=== PATIENT | female | born 1980 | race Caucasian/White ===

== ENCOUNTER 2016-12-28 22:08 | Emergency (ER) | payer SELFPAY ==
[~2016-12-28] VITALS: Ht 167.6 cm; Wt 80.7 kg
[~2016-12-28 22:08] MED LIST: ALBUTEROL INHALER; ALBUTEROL0.09 MG/A1; MOTRIN; PROVENTIL2.5 MG/3 M INH
[2016-12-28 22:31] VITALS: BP 138/101
--- NOTE | 2016-12-28 23:18 | NUR ---
AMBULATED TO ER BED 2
--- NOTE | 2016-12-28 23:30 | NUR ---
PATIENT PRESENTS TO ED WITH C.O. ABDOMINAL PAIN . DENIES N/V/D; SKIN IS PINK/WARM/DRY; AAOX4 WITH EVEN AND STEADY GAIT; LUNGS CLEAR BL; HR EVEN AND REGULAR; PT DENIES ANY FEVER, CP, SOB, OR COUGH AT THIS TIME; PATIENT STATES PAIN OF 7/10 AT THIS TIME; VSS; PATIENT POSITIONED FOR COMFORT; HOB ELEVATED; BEDRAILS UP X2; BED DOWN. ER MD MADE AWARE OF PT STATUS.
--- NOTE | 2016-12-28 23:35 | NUR ---
Patient being evaluated by physician at bedside.
[2016-12-28] MEDS ORDERED: ALUMINUM HYD/MAG/SIMETHICONE 30 ML, BELLADONNA/PHENOBARBITAL 10 ML, LIDOCAINE VISCOUS 2... PO ONE (23:50)
[2016-12-28] MEDS ORDERED: KETOROLAC 30 MG/ML VIAL IM ONE (23:50)
--- NOTE | 2016-12-29 01:21 | NUR ---
PT RESTING. VSS; PATIENT POSITIONED FOR COMFORT; HOB ELEVATED; BEDRAILS UP X2; BED DOWN. ER MD MADE AWARE OF PT STATUS.
[2016-12-29 01:53] VITALS: BP 122/82
--- NOTE | 2016-12-29 01:53 | NUR ---
Patient discharged with v/s stable. Written and verbal after care instructions given and explained. Patient alert, oriented and verbalized understanding of instructions. Ambulatory with steady gait. All questions addressed prior to discharge. ID band removed. Patient advised to follow up with PMD. Rx of MYLANTA PO given. Patient educated on indication of medication including possible reaction and side effects. Opportunity to ask questions provided and answered.
== END 2016-12-29 01:53 | disposition home or self-care (01) ==
LOC: MED 22:13
DX: R10.13 Epigastric pain (principal); R10.30 Lower abdominal pain, unspecified; R11.0 Nausea; J45.909 Unspecified asthma, uncomplicated; Z87.19 Personal history of other diseases of the digestive system
CPT/HCPCS: 36415; 80053; 81001; 81025; 83690; 85025; 93005; 96372; 99285; J1885

== ENCOUNTER 2018-04-13 17:23 | Emergency (ER) | payer MEDICAID ==
[~2018-04-13] VITALS: Ht 167.6 cm; Wt 71.0 kg
[~2018-04-13 17:23] MED LIST changes: -ALBUTEROL INHALER; -ALBUTEROL0.09 MG/A1; -MOTRIN; +PRON INH; -PROVENTIL2.5 MG/3 M INH
[2018-04-13 17:40] VITALS: BP 127/86
--- NOTE | 2018-04-13 17:50 | NUR ---
PT AMBULATES TO BED 8, DR WATERS NOTIFIED, REPORT GIVEN TO RN NORIS, DILLAN MONTENEGRO
--- NOTE | 2018-04-13 17:55 | NUR ---
PT PLACED ON THE MONITOR BY DILLAN MONTENEGRO
--- NOTE | 2018-04-13 17:58 | NUR ---
37 YO F TO ER FOR ALLERGIC REACTION. PT STATE PUTTING ON OIL AT [employer] AND STARTED TO ITICHING ALL OVER BODY. PT STATE TIGHTNESS TO NASAL PASSAGE, O2 SAT AT 100%. LS CLEAR THROUGHOUT. DENIES N/V/D; SKIN IS PINK/WARM/DRY WITH HIVES ALL OVER BODY ; AAOX4 WITH EVEN AND STEADY GAIT; LUNGS CLEAR BL; HR EVEN AND REGULAR; PT DENIES ANY FEVER, CP, SOB, OR COUGH AT THIS TIME; PATIENT STATES PAIN OF 0/10 AT THIS TIME; VSS; PATIENT POSITIONED FOR COMFORT; HOB ELEVATED; BEDRAILS UP X2; BED DOWN. ER MD MADE AWARE OF PT STATUS.
[2018-04-13] MEDS ORDERED: DEXAMETHASONE 10 MG/ML VIAL IM ONE (18:10)
[2018-04-13] MEDS ORDERED: diphenhydrAMINE 50 MG/ML VIAL IM ONE (18:10)
[2018-04-13] MEDS ORDERED: ALBUTEROL 0.083% 2.5 MG/3 ML NEBU INH ONE (18:10)
--- NOTE | 2018-04-13 18:30 | NUR ---
RT AT BEDSIDE FOR BREATHING TX
--- NOTE | 2018-04-13 19:08 | NUR ---
RECIEVED REPORT FROM BRANDON RN
[2018-04-13 19:37] VITALS: BP 126/78
--- NOTE | 2018-04-13 19:37 | NUR ---
Patient discharged with v/s stable. Written and verbal after care instructions given and explained. Patient alert, oriented and verbalized understanding of instructions. Ambulatory with steady gait. All questions addressed prior to discharge. ID band removed. Patient advised to follow up with PMD. Rx of PREDNISONE AND ATARAX given. Patient educated on indication of medication including possible reaction and side effects. Opportunity to ask questions provided and answered.
== END 2018-04-13 19:37 | disposition home or self-care (01) ==
LOC: MED 17:23
DX: T49.3X5A Adverse effect of emollients, demulcents and protectants, initial encounter (principal); L50.9 Urticaria, unspecified; J45.909 Unspecified asthma, uncomplicated; Z79.899 Other long term (current) drug therapy; Y92.89 Other specified places as the place of occurrence of the external cause
CPT/HCPCS: 94640; 96372; 99284; J1100; J1200; J7613

== ENCOUNTER 2019-11-30 17:40 | Emergency (ER) | payer MEDICAID ==
[~2019-11-30] VITALS: Ht 167.6 cm; Wt 68.0 kg
[2019-11-30 17:48] VITALS: BP 132/76
--- NOTE | 2019-11-30 17:53 | NUR ---
PT AMB TO BED 3
--- NOTE | 2019-11-30 18:00 | NUR ---
39 Y/O F C/O FACIAL SWELLING AFTER APPLYING COSEMTICS TO FACE. PT STATES SHE HAS HAD THIS REACTION IN THE PAST. STATES IT IS HARD TO SWALLOW. PT FACE IS RED IN COLOR, 0XYGEN LEVEL 99%. PT POSITINED FOR COMFORT, FRIEND AT BEDSIDE. TOD
[2019-11-30] MEDS: EPINEPHrine 1:1000 - 1 MG/ML AMP IM ONE (18:03)
[2019-11-30] MEDS: diphenhydrAMINE 50 MG/ML VIAL IVP ONE (18:06)
[2019-11-30] MEDS: FAMOTIDINE 20 MG/2 ML VIAL IVP ONE (18:09)
[2019-11-30] MEDS: NACL 0.9% 1,000 ML IV ONE (18:20)
--- NOTE | 2019-11-30 18:20 | NUR ---
PT STATES SHE IS ABLE TO BREATHE AND SWALLOW WITHOUT DIFFICULTY, IMPROVED SIGNIFICANTLY. REDNESS TO FACE IS GONE, PT RESSTING COMFORTABLY.
[2019-11-30] MEDS: methylPREDNISolone SS 125 MG/2 ML VIAL IVP ONE (18:55)
--- NOTE | 2019-11-30 19:45 | NUR ---
PATIENT ALERT AND ORIENTED, BREATHING EVEN AND UNLABORED
--- NOTE | 2019-11-30 19:59 | NUR ---
Dr. Tam examining patient.
[2019-11-30 20:25] VITALS: BP 110/58
--- NOTE | 2019-11-30 20:25 | NUR ---
Patient discharged with v/s stable. Written and verbal after care instructions ABOUT ANAPHYLACTIC REACTIONS AND RASHES given and explained. Patient alert, oriented and verbalized understanding of instructions. Ambulatory with steady gait. All questions addressed prior to discharge. ID band removed. Patient advised to follow up with PMD. Rx of BENADRYL AND PREDNISONE given. Patient educated on indication of medication including possible reaction and side effects. Opportunity to ask questions provided and answered. PATIENT STATES MUCH BETTER AND NO PROBLEM BREATHING ANYMORE
== END 2019-11-30 20:25 | disposition home or self-care (01) ==
LOC: MED 17:40
DX: T78.40XA Allergy, unspecified, initial encounter (principal); J45.909 Unspecified asthma, uncomplicated; Z90.49 Acquired absence of other specified parts of digestive tract; Z79.899 Other long term (current) drug therapy; X58.XXXA Exposure to other specified factors, initial encounter
CPT/HCPCS: 96372; 96374; 96375; 99283; J0171; J1200; J2930; J3490; J7030

== ENCOUNTER 2021-08-13 07:43 | Emergency (ER) | payer OTHER, MEDICAID ==
[~2021-08-13] VITALS: Ht 167.6 cm; Wt 72.1 kg
[2021-08-13 07:58] VITALS: BP 116/71
--- NOTE | 2021-08-13 08:04 | NUR ---
PATIENT AMBULATED WITH STEADY GAIT TO BED 8
--- NOTE | 2021-08-13 08:07 | NUR ---
DR. QUINTERO AT BEDSIDE EVALUATING PATIENT.
[2021-08-13] MEDS ORDERED: KETOROLAC 30 MG/ML VIAL IM ONE (08:10)
--- NOTE | 2021-08-13 08:16 | NUR ---
40 Y/O FEMALE C/O LOWER ABDOMINAL PAIN X6 DAYS. +DIARRHEA. DENIES N/V. DENIES DYSURIA. PT ALSO C/O ACID REFLUX X2 WEEKS. PT STATES SHARP INTERMITTENT 6/10 PAIN. PMH:GASTRITIS NKDA
--- NOTE | 2021-08-13 08:20 | NUR ---
LAB AT BEDSIDE
--- NOTE | 2021-08-13 08:27 | NUR ---
PT TAKEN TO CT SCAN
--- NOTE | 2021-08-13 08:33 | NUR ---
PT RETURNED FROM CT SCAN
[2021-08-13 08:46] LABS: BASOPHILS % (AUTO) 0.8 % (0.0-2.0); EOSINOPHILS # (AUTO) 0.1 K/uL (0-0.4); EOSINOPHILS % (AUTO) 1.1 % (0.0-4.0); HEMATOCRIT 40.2 % (36-48); HEMOGLOBIN 13.8 g/dL (12.0-16.0); LYMPHOCYTES # (AUTO) 1.5 K/uL (2.5-16.5); LYMPHOCYTES % (AUTO) 28.1 % (20.5-51.1); MEAN CORPUSCULAR HEMOGLOBIN 31 pg (27-31); MEAN CORPUSCULAR HGB CONC 34 g/dL (33-37); MEAN CORPUSCULAR VOLUME 89.9 fL (80-94); MONOCYTES # (AUTO) 0.5 K/uL (0.8-1.0); MONOCYTES % (AUTO) 8.6 % (1.7-9.3); NEUTROPHILS # (AUTO) 3.3 K/uL (1.8-7.7); NEUTROPHILS % (AUTO) 61.4 % (42.2-75.2); PLATELET COUNT (AUTO) 349 K/uL (140-450); RED BLOOD CELL COUNT(AUTO) 4.47 MIL/uL (4.20-5.40); RED CELL DISTRIBUTION WIDTH 13.7 % (11.6-13.7); WHITE BLOOD COUNT (AUTO) 5.4 K/uL (4.8-10.8)
[2021-08-13 08:57] LABS: APPEARANCE,URINE CLEAR (CLEAR); BILIRUBIN,URINE NEGATIVE (NEGATIVE); BLOOD, URINE NEGATIVE (NEGATIVE); COLOR,URINE YELLOW (YELLOW); LEUKOCYTE ESTERASE ,URINE NEGATIVE (NEGATIVE); NITRITE, URINE NEGATIVE (NEGATIVE); PH,URINE 8.5 (5.0-9.0); UGLUCOSE NEGATIVE (NEGATIVE)
[2021-08-13 09:03] LABS: ALBUMIN 3.8 g/dL (3.4-5.0); ANION GAP 11.7 (8-16); CARBON DIOXIDE 28.5 mmol/L (21-32); CREATININE 0.8 mg/dL (0.6-1.3); POTASSIUM 3.2 mmol/L (3.5-5.1); TOTAL BILIRUBIN 0.4 mg/dL (0.0-1.0)
[2021-08-13] MEDS ORDERED: POTASSIUM CHLORIDE 10 MEQ TABER PO ONE (09:25)
[2021-08-13] MEDS ORDERED: BEN10 PO (09:47)
[2021-08-13 10:05] VITALS: BP 118/65
--- NOTE | 2021-08-13 10:05 | NUR ---
Patient discharged with v/s stable. Written and verbal after care instructions given and explained. Patient alert, oriented and verbalized understanding of instructions. Ambulatory with steady gait. All questions addressed prior to discharge. ID band removed. Patient advised to follow up with PMD. Rx of BENTYL given. Patient educated on indication of medication including possible reaction and side effects. Opportunity to ask questions provided and answered.
== END 2021-08-13 10:05 | disposition home or self-care (01) ==
LOC: MED 07:43
DX: R10.30 Lower abdominal pain, unspecified (principal); R19.7 Diarrhea, unspecified; J45.909 Unspecified asthma, uncomplicated; K21.9 Gastro-esophageal reflux disease without esophagitis
CPT/HCPCS: 36415; 74176; 80053; 81003; 81025; 83690; 85025; 96372; 99284; J1885